=== PATIENT | male | born 1980 | race Caucasian/White ===

== ENCOUNTER 2019-03-16 12:23 | Outpatient (CLI) | payer OTHER ==
--- NOTE | 2019-03-16 13:06 | XRAY Report ---
Reason: CHEST PAIN Procedure Date: 03/16/2019 Accession Number: [id number] / [id number] Procedure: XR - Chest 2 View X-Ray CPT Code: 30589 FULL RESULT: EXAM: CHEST RADIOGRAPHY EXAM DATE: 03/16/2019 12:39 PM. CLINICAL HISTORY: Chest pain. Left-sided upper anterior chest/heart pain with deep breaths. Pain lasts about 1 hour and comes and goes, ongoing for 1 year. COMPARISON: None. TECHNIQUE: 2 views. FINDINGS: Lungs/Pleura: No focal opacities evident. No pleural effusion. No pneumothorax. Normal volumes. Mediastinum: Heart and mediastinal contours are unremarkable. Other: Within the limited visualization no musculoskeletal derangement is detected. Note is made of the fact that the situs marker obscures the left AC joint. IMPRESSION: No acute cardiopulmonary abnormality. [facility]
== END 2019-03-16 12:24 | disposition home or self-care (01) ==
LOC: DI 12:23
PROVIDERS: ATTEND Internal Medicine
DX: R07.9 Chest pain, unspecified (principal)
CPT/HCPCS: 71046

== ENCOUNTER 2019-11-20 14:27 | Emergency (ER) | payer OTHER ==
[2019-11-20 14:54] LABS: BILIRUBIN,URINE NEGATIVE (NEGATIVE); GLUCOSE, URINE (UA) NEGATIVE (NEGATIVE); KETONES,URINE (UA) NEGATIVE (NEGATIVE); LEUKOCYTE ESTERASE, URINE NEGATIVE (NEGATIVE); NITRITE,URINE NEGATIVE (NEGATIVE); OCCULT BLOOD,URINE NEGATIVE (NEGATIVE); PROTEIN,URINE NEGATIVE (NEGATIVE); UROBILINOGEN,URINE 0.2 (NORMAL) E.U./dL (NORMAL)
[2019-11-20 14:55] LABS: CLARITY,URINE CLEAR (CLEAR)
[2019-11-20 17:00] VITALS: BP 155/100
--- NOTE | 2019-11-20 17:07 | ED Physician Documentation ---
History of Present Illness - Stated complaint Stated Complaint: GROIN PX - Chief complaint Chief Complaint: General - History obtained from History obtained from: Patient - History of Present Illness Timing: Other (3-6 months) Pain level max: 0 Pain level now: 0 - Additonal information Additional information: 38-year-old male presents the emergency department with perineal pain for the last 6 months. He saw his doctor who states it is unclear etiology. Patient states the pain is becoming worse. Does not have any dysuria. No risk factors for STD. He is sexually active with one partner. worse with walking. Review of Systems Constitutional: denies: Fever, Chills Respiratory: denies: Cough GI: denies: Nausea, Vomiting, Diarrhea : denies: Dysuria, Frequency, Hesitancy Skin: denies: Rash Musculoskeletal: denies: Neck pain, Back pain Neurologic: denies: Headache PD PAST MEDICAL HISTORY - Past Medical History Past Medical History: Yes Cardiovascular: None Respiratory: None Neuro: None Endocrine/Autoimmune: None GI: None : None HEENT: None Psych: Post traumatic stress disorder Musculoskeletal: None Derm: None - Past Surgical History Past Surgical History: Yes General: Other - Present Medications Home Medications: Ambulatory Orders Medication Instructions Recorded Confirmed Hydrocodone/Acetaminophen 1 - 2 each PO Q6H PRN #14 tablet 11/20/19 [Hydrocodon-Acetaminophen 5-325] Sulfamethox/Trimeth 800/160 1 each PO BID #56 tablet 11/20/19 [Bactrim Ds 800/160] - Allergies Allergies/Adverse Reactions: Allergies Allergy/AdvReac Type Severity Reaction Status Date / Time No Known Drug Allergies Allergy Verified 11/20/19 14:30 - Social History Does the pt smoke?: No Smoking Status: Never smoker Does the pt drink ETOH?: No Does the pt have substance abuse?: Yes Substance Use and Type: Marijuana - Immunizations Immunizations are current?: Yes - POLST Patient has POLST: No PD ED PE NORMAL - Vitals Vital signs reviewed: Yes - General General: Alert and oriented X 3, No acute distress - HEENT HEENT: Moist mucous membranes - Neck Neck: Supple, no meningeal sign - Cardiac Cardiac: RRR - Respiratory Respiratory: No respiratory distress, Clear bilaterally - Abdomen Abdomen: Soft, Non tender, Non distended - Male Male : Other (Normal external genitalia exam. No testicular pain or swelling. No tenderness. No penile discharge. Mild tenderness over the prostate on rectal exam. Normal perineal skin) - Derm Derm: Warm and dry - Extremities Extremities: No edema - Neuro Neuro: Alert and oriented X 3 Results - Vitals Vitals: Vital Signs - 24 hr 11/20/19 11/20/19 14:30 16:59 Temperature 36.8 C Heart Rate 76 83 Respiratory 14 18 Rate Blood Pressure 146/90 H 155/100 H O2 Saturation 99 98 Oxygen O2 Source Room air - Labs Labs: Laboratory Tests 11/20/19 Unknown Urine Color YELLOW Urine Clarity CLEAR Urine pH 7.0 Ur Specific [place] <=1.005 Urine Protein NEGATIVE Urine Glucose (UA) NEGATIVE Urine Ketones NEGATIVE Urine Occult Blood NEGATIVE Urine Nitrite NEGATIVE Urine Bilirubin NEGATIVE Urine Urobilinogen 0.2 (NORMAL) Ur Leukocyte Esterase NEGATIVE Ur Microscopic Review NOT INDICATED Urine Culture Comments NOT INDICATED PD MEDICAL DECISION MAKING - ED course Complexity details: reviewed results, considered differential, d/w patient ED course: Patient with symptoms concerning for prostatitis. Will place on Bactrim and refer him back to his doctor and urology. Patient counseled regarding signs and symptoms for which I believe and urgent re-evaluation would be necessary. Patient with good understanding of and agreement to plan and is comfortable going home at this time This document was made in part using voice recognition software. While efforts are made to proofread this document, sound alike and grammatical errors may occur. Departure - Departure Disposition: 01 Home, Self Care Clinical Impression: Prostatitis Qualifiers: Prostatitis type: unspecified Qualified Code(s): N41.9 - Inflammatory disease of prostate, unspecified Condition: Good Instructions: ED Prostatitis Follow-Up: Sherine Dacosta MD [Primary Care Provider] - Desiree Ann MD [Provider Admit Priv/Credential] - Roque Veras MD [Provider Admit Priv/Credential] - Within 1 week Prescriptions: Hydrocodone/Acetaminophen [Hydrocodon-Acetaminophen 5-325] 1 - 2 each PO Q6H PRN #14 tablet PRN Reason: pain Sulfamethox/Trimeth 800/160 [Bactrim Ds 800/160] 1 each PO BID #56 tablet Comments: Take all antibiotics until gone. Follow-up with urology for repeat evaluation. Return if you worsen. Do not drink alcohol or drive while on narcotic pain medicine. Note that many narcotic pain relievers also contain tylenol/acetaminophen. Pl ease ensure that your total dose of acetaminophen from all sources does not exceed 3 grams (3000mg) per day. You may constipated on this medication, take a stool softener such as "Colace" twice a day while you are on it. Also recommend a qkru-[id number]-kavznty laxative such as senna or MiraLAX any day that you do not have a bowel movement. If you received narcotic pain medication in the emergency department, do not drive or operate machinery for the next 24 hours.
[2019-11-20] MEDS ORDERED: HYDROcod/ACETAM 5/325 MG TABLET PO STA (17:08)
[2019-11-20] MEDS: SULFAMETH/TRIMETH DS 800/160 MG TABLET PO STA (17:12)
[2019-11-20 21:58] LABS: TRICHOMONAS VAGINALIS DNA NEGATIVE (NEGATIVE)
== END 2019-11-20 17:18 | disposition home or self-care (01) ==
LOC: ED 14:27
DX: N41.9 Inflammatory disease of prostate, unspecified (principal)
CPT/HCPCS: 81003; 87491; 87591; 87661; 99283; 99284; A9270; 81001; 87086

== ENCOUNTER 2019-11-30 19:03 | Outpatient (CLI) | payer OTHER ==
--- NOTE | 2019-11-30 22:16 | Ultrasound Report ---
Reason: ABN LIVER FUNCTION TESTS Procedure Date: 11/30/2019 Accession Number: [id number] / [id number] Procedure: US - Abdomen Limited CPT Code: Final Report FULL RESULT: EXAM: ABDOMEN ULTRASOUND LIMITED, RUQ EXAM DATE: 11/30/2019 07:42 PM. CLINICAL HISTORY: ABN LIVER FUNCTION TESTS. COMPARISON: None. TECHNIQUE: Real-time scanning was performed with static images obtained. FINDINGS: Liver: Diffusely echogenic. Right lobe is 15.6 cm. Main portal vein flow: Hepatopetal. Gallbladder: No stones, wall thickening, or sonographic Hsu's sign. Biliary System: CBD measures 4 mm. No intrahepatic ductal dilatation. Other: Right kidney demonstrates no hydronephrosis. Visualized portions of the pancreas are unremarkable. IMPRESSION: No acute sonographic abnormalities. Diffuse hepatic steatosis. [facility]
== END 2019-11-30 19:04 | disposition home or self-care (01) ==
LOC: DI 19:03
PROVIDERS: ATTEND Internal Medicine
DX: K76.0 Fatty (change of) liver, not elsewhere classified (principal)
CPT/HCPCS: 76705